=== PATIENT | male | born 1980 | race Caucasian/White ===

== ENCOUNTER 2019-12-15 09:57 | Emergency (ER) | payer SELFPAY ==
[~2019-12-15] VITALS: Ht 190 cm; Wt 122.5 kg
[~2019-12-15 09:57] MED LIST: AMOX500C2 PO; HYDR1CAP2 PO; HYDR1TAB PO
[2019-12-15 10:10] VITALS: BP 137/86
[2019-12-15] MEDS ORDERED: CYCL5TAB (10:26)
--- NOTE | 2019-12-15 10:59 | ED Integumentary General ---
General Chief Complaint: Skin/Wound Problems Stated Complaint: KNOT UNDER R ARMPIT Nursing Triage Note: PT STATES HE HAS A ABSCESS RIGH ARMPIT X2 WEEKS THAT IS BECOMING BIGGER AND MORE PAINFUL. PT STATES HE WAS RUUNING A FEVER TUESDAY BUT HAS BEEN FEVER FREE X24 HOURS. Source: patient Exam Limitations: no limitations History of Present Illness Date Seen by Provider: Dec 15, 2019 Time Seen by Provider: 10:58 Initial Comments Abscess to right axilla x2 weeks. Timing/Duration: constant, getting worse Severity: moderate Possible Cause: no cause identified Associated Symptoms: denies symptoms Allergies and Home Medications Allergies Coded Allergies: NKANo Known Allergies (Verified Allergy, Unknown, 04/04/07) Patient Home Medication List Home Medication List Reviewed: Yes Review of Systems Review of Systems Constitutional: see HPI EENTM: see HPI Respiratory: no symptoms reported Cardiovascular: no symptoms reported Genitourinary: no symptoms reported Musculoskeletal: no symptoms reported Skin: no symptoms reported Psychiatric/Neurological: No Symptoms Reported Endocrine: No Symptoms Reported Hematologic/Lymphatic: No Symptoms Reported Past [id number] Hx Patient Social History Alcohol Use: Denies Use Recreational Drug Use: No Smoking Status: Current Everyday Smoker Recent Foreign Travel: No Contact w/Someone Who Travel: No Recent Infectious Disease Expo: No Recent Hopitalizations: No Past Medical History Surgeries: Yes (CYST REMOVAL, dental surgery) Respiratory: No Cardiac: No Neurological: No Reproductive Disorders: No Genitourinary: No Gastrointestinal: No Musculoskeletal: Yes (HERNIATED DISK) Chronic Back Pain Endocrine: No HEENT: No Cancer: No Psychosocial: No Integumentary: No Blood Disorders: No Physical Exam Vital Signs Vital Signs - First Documented 12/15/19 10:10 Temp 36.6 Pulse 98 Resp 16 B/P (MAP) 137/86 (103) Pulse Ox 97 O2 Delivery Room Air Capillary Refill : Less Than 3 Seconds General Appearance: WD/WN, no apparent distress HEENT: PERRL/EOMI, normal ENT inspection Respiratory: no respiratory distress, no accessory muscle use Extremities: normal range of motion, non-tender Neurologic/Psychiatric: alert, normal mood/affect, oriented x 3 Skin: normal color, warm/dry Skin Problem Character: abscess, other (fluctuant abscess to right axilla. ) Procedures/Interventions I&D : Blade Size: 11 I & D Procedure: Wound Packing Packing/Drain: Plain Packing 1/2 Progress/Results/Core Measures Results/Orders Vital Signs/I&O 12/15/19 10:10 Temp 36.6 Pulse 98 Resp 16 B/P (MAP) 137/86 (103) Pulse Ox 97 O2 Delivery Room Air Blood Pressure Mean: 103 Departure Impression Primary Impression: Abscess Disposition: 01 HOME, SELF-CARE Condition: Stable Departure-Patient Inst. Decision time for Depature: 11:01 Referrals: [facility] (PCP) Primary Care Physician ONELIA ANDERSON APRN (Family) Primary Care Physician Patient Instructions: Abscess Incision and Drainage (DC) Add. Discharge Instructions: 1. Change the gauze 4x4 over the right armpit as needed when it becomes soaked with pus/blood. Remove the packing strip tomorrow evening by simply pulling on it. If it falls out on its own during showering before then, just leave it out. You may shower today. Pain medication and antibiotics as directed. All discharge instructions reviewed with patient and/or family. Voiced understanding. Scripts Doxycycline Hyclate (Doxycycline Hyclate) 100 Mg Tablet 100 MG PO BID, #20 TAB 0 Refills Prov: BLAZE WILCOX APRN 12/15/19 BLAZE WILCOX APRN Dec 15, 2019 10:59
[2019-12-15] MEDS ORDERED: HYDR-4226 PO (11:04)
[2019-12-15] MEDS ORDERED: DOXY100T2 PO (11:04)
== END 2019-12-15 11:05 | disposition home or self-care (01) ==
LOC: EDUNIT# 09:57 → ER 09:58
DX: L02.411 Cutaneous abscess of right axilla (principal); F17.200 Nicotine dependence, unspecified, uncomplicated
CPT/HCPCS: 10061; 87070; 87077; 87205